=== PATIENT | male | born 1970 | race Caucasian/White ===

== ENCOUNTER 2017-04-29 14:57 | Emergency (ER) | payer BC, OTHER ==
[~2017-04-29 14:57] MED LIST: DEPA500T3 PO; DIVA250ER PO; ESCI20TA PO; GABA600T PO; LEXA20TA PO; NEUR300C PO; SYNT25TA PO; TEMA30CA PO
[2017-04-29 14:59] VITALS: BP 155/96; PULSE 74; RESP 14; TEMP 97.8; O2SAT 95
[2017-04-29] MEDS ORDERED: LEXA10TA PO (16:26)
[2017-04-29] MEDS ORDERED: DEPA500T3 PO (16:26)
[2017-04-29] MEDS ORDERED: DIVA250ER PO (16:26)
--- NOTE | 2017-04-29 16:50 | PD ---
Physical Exam Date Seen by Provider: Apr 29, 2017 Narrative Patient presents for evaluation of possible concussion. He is complaining with dizziness, headache, photophobia. Data Data Last Documented VS Vital Signs Date Time Temp Pulse Resp B/P (MAP) Pulse Ox O2 Delivery O2 Flow Rate FiO2 04/29/17 14:59 97.8 74 14 155/96 (115) 95 MDM Supervised Visit with DAVION: Yes Narrative Course I, Dr. Piedra, have reviewed the advance practice practitioner's documentation and am in agreement, met with the patient face to face, made the diagnosis, and the medical decision making was done by me. *My assessment and Findings: Patient is awake and alert and fully oriented. He is ambulatory to his room. Please see Clif Gee PA-C's note for results of laboratory and radiographic evaluation, ED course, final diagnosis and disposition Myrna Piedra MD Apr 29, 2017 16:50
--- NOTE | 2017-04-29 17:09 | PD ---
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 Patient states that he felt okay at the time, he does have an abrasion to the anterior nose, which appears to be healing well, but he's had increased nausea, headache, photophobia, mild dizziness, and he says his "peripheral vision is fuzzy". Patient has history of concussions in the distant past. Pain is currently about an 8 out of 10 when the lights are on. He denies visual changes or double vision. Patient has not thrown up but does feel nauseous. PFSH Past Medical History Bipolar Disorder: Yes Anxiety: Yes Depression: Yes Diminished Hearing: No Insomnia: Yes Psychiatric: Yes Pneumonia: Yes Past Surgical History Appendectomy: Yes Other Surgery: Yes (BIOPSY RIGHT FOOT) Social History Alcohol Use: Yes (1 drink per day) Tobacco Use: No Substance Use: No Allergies-Medications (Allergen,Severity, Reaction): Coded Allergies: No Known Allergies (Unverified Adverse Reaction, Unknown, 04/29/17) Reported Meds & Prescriptions Reported Meds & Active Scripts Active Zofran (Ondansetron HCl) 4 Mg Tab 4 Mg PO Q6HR PRN Ibuprofen 800 Mg Tab 800 Mg PO Q8H PRN Tramadol (Tramadol HCl) 50 Mg Tab 50 Mg PO Q6H PRN Reported Depakote ER (Divalproex Sodium) 250 Mg Dirk 750 Mg PO HS Depakote ER (Divalproex Sodium) 500 Mg Dirk 500 Mg PO DAILY Lexapro (Escitalopram Oxalate) 10 Mg Tab 10 Mg PO DAILY Physical Exam Narrative GENERAL: Patient appears in mild to moderate distress. Patient has an apparent bug bite/abrasion to the bridge of his nose. SKIN: Warm and dry. Color. Normal turgor HEAD: Patient is tenderness over the nasal bridge without obvious signs of fracture. Normocephalic. She has generalized tenderness with palpation of the scalp without specific bony tenderness. EYES: Pupils equal and round. No scleral icterus. No injection or drainage. Patient has moderate photophobia but no nystagmus. ENT: No nasal bleeding or discharge. Mucous membranes pink and moist. Pharynx is clear. Airway is patent. No dental injury. NECK: Trachea midline. No bony tenderness or step-off. Range of motion is full and nontender. CARDIOVASCULAR: Regular rate and rhythm. RESPIRATORY: No accessory muscle use. Clear to auscultation. Breath sounds equal bilaterally. MUSCULOSKELETAL: Extremities without clubbing, cyanosis, or edema. No obvious deformities. NEUROLOGICAL: Awake and alert. No obvious cranial nerve deficits. Motor grossly within normal limits. Five out of 5 muscle strength in the arms and legs. Normal speech. PSYCHIATRIC: Appropriate mood and affect; insight and judgment normal. Data Data Last Documented VS Vital Signs Date Time Temp Pulse Resp B/P (MAP) Pulse Ox O2 Delivery O2 Flow Rate FiO2 04/29/17 14:59 97.8 74 14 155/96 (115) [address] Brain W/O Iv Contrast(Rout) (04/29/17 17:10) Ondansetron Odt (Zofran Odt) (04/29/17 17:15) Acetamin-Hydrocod 325-5 Mg ([place] 5-325 (04/29/17 17:15) Tetanus/Diphtheria Tox Adult (Tetanus/Di (04/29/17 17:45) Ketorolac Inj (Toradol Inj) (04/29/17 19:00) MDM Medical Decision Making Medical Screen Exam Complete: Yes Emergency Medical Condition: Yes Differential Diagnosis Concussion. Intracranial bleed. Fracture. Narrative Course Patient appears medically stable at time of exam. CT of the head is ordered. Patient is given Lortab 5/325 by mouth as well as Zofran [address] is negative for acute process. Patient given Toradol 60 mg IM. Patient is continued on ibuprofen 800 mg 3 times daily #30. Patient is given Zofran 4 mg one every 6 hours when necessary nausea. Patient is given tramadol 20 mg one every 6 hours when necessary. Patient follow up with symptoms worsen as discussed. Diagnosis Primary Impression: Concussion Qualified Codes: S06.0X9A - Concussion with loss of consciousness of unspecified duration, initial encounter Additional Impressions: Accident at workplace Dog bite Qualified Codes: W54.0XXA - Bitten by dog, initial encounter Referrals: Primary Care Physician Patient Instructions: Concussion (ED), General Instructions Additional Instructions: CT is negative for acute process. Patient given Toradol 60 mg IM. Patient is continued on ibuprofen 800 mg 3 times daily #30. Patient is given Zofran 4 mg one every 6 hours when necessary nausea. Patient is given tramadol 20 mg one every 6 hours when necessary. Patient follow up with symptoms worsen as discussed. Med/Other Pt SpecificInfo: Prescription(s) given Scripts Ondansetron (Zofran) 4 Mg Tab 4 MG PO Q6HR Y for NAUSEA OR VOMITING, #12 TAB 0 Refills Prov: Wayne Huitron MD 04/29/17 Ibuprofen (Ibuprofen) 800 Mg Tab 800 MG PO Q8H Y for Pain/Inflammation, #30 TAB 0 Refills Prov: Wayne Huitron MD 04/29/17 Tramadol (Tramadol) 50 Mg Tab 50 MG PO Q6H Y for PAIN, #20 TAB 0 Refills Prov: Wayne Huitron MD 04/29/17 Disposition: 01 DISCHARGE HOME Condition: Stable Juni Gee Apr 29, 2017 17:09
[2017-04-29] MEDS ORDERED: ONDANSETRON ODT 4 MG TAB PO ONE (17:15)
[2017-04-29] MEDS ORDERED: ACETAMINOPHEN/HYDROcodone 325 MG/5 MG TAB PO ONE (17:15)
[2017-04-29] MEDS ORDERED: TETANUS/DIPHTHERIA TOXOID ADULT 0.5 ML VIAL IM ONE (17:45)
--- NOTE | 2017-04-29 18:19 | RADRPT ---
EXAM DATE/TIME: 04/29/2017 17:52 [facility] COMPARISON: No previous studies available for comparison. INDICATIONS : Patient hit in face with pitbull, complains of headache, nausea. RADIATION DOSE: 56.35 CTDIvol (mGy) MEDICAL HISTORY : None SURGICAL HISTORY : Appendectomy. ENCOUNTER: Initial ACUITY: 3 days PAIN SCALE: 8/10 LOCATION: cranial TECHNIQUE: Multiple contiguous axial images were obtained of the head. Using automated exposure control and adj ustment of the mA and/or kV according to patient size, radiation dose was kept as low as reasonably a chievable to obtain optimal diagnostic quality images. DICOM format image data is available electro nically for review and comparison. FINDINGS: CEREBRUM: The ventricles are normal for age. No evidence of midline shift, mass lesion, hemorrhage or acute in farction. No extra-axial fluid collections are seen. POSTERIOR FOSSA: The cerebellum and brainstem are intact. The 4th ventricle is midline. The cerebellopontine angle i s unremarkable. EXTRACRANIAL: The visualized portion of the orbits is intact. SKULL: The calvaria is intact. No evidence of skull fracture. CONCLUSION: 1. No acute intracranial abnormalities. Alfred Cabrera MD on April 29, 2017 at 18:16 Board Certified Radiologist. This report was verified electronically.
[2017-04-29] MEDS ORDERED: IBUP1TAB7 PO (18:46)
[2017-04-29] MEDS ORDERED: TRAM50TA PO (18:46)
[2017-04-29] MEDS ORDERED: ZOFR4TAB PO (18:46)
[2017-04-29] MEDS ORDERED: KETOROLAC TROMETHAMINE 60 MG/2 ML (IM) VIAL IM ONE (19:00)
[2017-04-29 19:24] VITALS: BP 135/62; PULSE 59; RESP 14; O2SAT 97
== END 2017-04-29 19:46 | disposition home or self-care (01) ==
LOC: NEPD 14:57
DX: S06.0X9A Concussion with loss of consciousness of unspecified duration, initial encounter (principal); F31.9 Bipolar disorder, unspecified; F41.9 Anxiety disorder, unspecified; W54.0XXA Bitten by dog, initial encounter; Y99.0 Civilian activity done for income or pay; Z79.899 Other long term (current) drug therapy
CPT/HCPCS: 70450; 90471; 90714; 96372; 99284; J1885

== ENCOUNTER 2017-05-08 10:45 | Emergency (ER) | payer OTHER ==
[~2017-05-08] VITALS: Ht 185.4 cm; Wt 118.2 kg
[~2017-05-08 10:45] MED LIST changes: -ESCI20TA PO; -GABA600T PO; +IBUP1TAB7 PO; +LEXA10TA PO; -LEXA20TA PO; -NEUR300C PO; -SYNT25TA PO; -TEMA30CA PO; +TRAM50TA PO; +ZOFR4TAB PO
[2017-05-08 10:46] VITALS: BP 159/104; PULSE 71; RESP 16; TEMP 98.4; O2SAT 99
[2017-05-08] MEDS ORDERED: DICL1CAP4 PO (12:00)
[2017-05-08] MEDS ORDERED: SODIUM CHLOR 0.9% 1000 ML INJ 1,000 ML IV ONE (12:43)
[2017-05-08] MEDS ORDERED: SODIUM CHLORIDE 0.9% FLUSH 10 ML FLUSH IVF PRN (12:45)
[2017-05-08] MEDS ORDERED: KETOROLAC TROMETHAMINE 30 MG/ML (IVP) VIAL IVP ONE (12:45)
[2017-05-08] MEDS ORDERED: PROCHLORPERAZINE INJ 10 MG/2 ML VIAL IVP ONE (12:45)
[2017-05-08] MEDS ORDERED: diphenhydrAMINE HCL 50 MG/ML VIAL IVP ONE (12:45)
--- NOTE | 2017-05-08 12:50 | PD ---
HPI Chief Complaint: Medical Clearance Time Seen by Provider: 12:24 Travel History International Travel<30 days: No Contact w/Intl Traveler<30days: No Traveled to known affect area: No History of Present Illness HPI 46-year-old male presents to the emergency department requesting pain medications secondary to being bit by a pitbull in the nose one and a half weeks ago and continued headache, dizziness, neck pain, photophobia, fatigue. He was seen here on April [address] of his head was unremarkable and was diagnosed with concussion. He has had continued, but not worsening of symptoms. Denies fever, vomiting. Neck pain is left lateral and reports it as a stiffness. Denies chest pain, shortness of breath. Has been taking tramadol , ibuprofen, diclofenac for symptom management without relief. Aggravated by light and movement. No known relieving factors. Rates pain 7/10 and describes as throbbing. No known allergies. No primary care provider. Denies significant past medical history. Takes Depakote and Lexapro for bipolar disorder. Has no other medical complaints. No other modifying factors or associated signs and symptoms. PFSH Past Medical History Bipolar Disorder: Yes Anxiety: Yes Depression: Yes Diminished Hearing: No Insomnia: Yes Psychiatric: Yes Pneumonia: Yes Past Surgical History Appendectomy: Yes Other Surgery: Yes (BIOPSY RIGHT FOOT) Social History Alcohol Use: Yes (1 drink per day) Tobacco Use: No Substance Use: No Allergies-Medications (Allergen,Severity, Reaction): Coded Allergies: No Known Allergies (Unverified Adverse Reaction, Unknown, 04/29/17) Reported Meds & Prescriptions Reported Meds & Active Scripts Active Zofran (Ondansetron HCl) 4 Mg Tab 4 Mg PO Q6HR PRN Ibuprofen 800 Mg Tab 800 Mg PO Q8H PRN Tramadol (Tramadol HCl) 50 Mg Tab 50 Mg PO Q6H PRN Reported Zorvolex (Diclofenac) 35 Mg Cap 75 Mg PO BID Depakote ER (Divalproex Sodium) 250 Mg Dirk 750 Mg PO HS Depakote ER (Divalproex Sodium) 500 Mg Dirk 500 Mg PO DAILY Lexapro (Escitalopram Oxalate) 10 Mg Tab 10 Mg PO DAILY Review of Systems Except as stated in HPI: all other systems reviewed are Neg Physical Exam Narrative GENERAL: Well-nourished, well-developed male patient, in no acute distress SKIN: Warm and dry. HEAD: Atraumatic. Normocephalic. No facial droop noted. Nose to finger test normal. EYES: Pupils equal and round at 3 mm with brisk reaction. No scleral icterus. No injection or drainage. PERRLA. EOMI. ENT: Mucosa pink and moist. Airway patent. NECK: Trachea midline. No lymphadenopathy. CARDIOVASCULAR: Regular rate and rhythm. No murmur appreciated. RESPIRATORY: No accessory muscle use. Clear to auscultation. Breath sounds equal bilaterally. GASTROINTESTINAL: Abdomen soft, non-tender, nondistended. Hepatic and splenic margins not palpable. Bowel sounds are active 4 quadrants. MUSCULOSKELETAL: No obvious deformities. No clubbing. No cyanosis. No edema. NEUROLOGICAL: Awake and alert. Oriented 4. No obvious cranial nerve deficits. Motor grossly within normal limits. Normal speech. No ataxia. No mid -line drift. No upper or lower extremity drift. Sensory intact and equal bilaterally. Moves all extremities. 5/5 strength to all extremities. PSYCHIATRIC: Appropriate mood and affect; insight and judgment normal. Data Data Last Documented VS Vital Signs Date Time Temp Pulse Resp B/P (MAP) Pulse Ox O2 Delivery O2 Flow Rate FiO2 05/08/17 10:46 98.4 71 16 159/104 (122) 99 Room Air Orders Orders Complete Blood Count With Diff (05/08/17 12:43) Basic Metabolic Panel (Bmp) (05/08/17 12:43) Iv Access Insert/Monitor (05/08/17 12:43) Sodium Chloride 0.9% Flush (Ns Flush) (05/08/17 12:45) Ketorolac Inj (Toradol Inj) (05/08/17 12:45) Prochlorperazine Inj (Compazine Inj) (05/08/17 12:45) Diphenhydramine Inj (Benadryl Inj) (05/08/17 12:45) Sodium Chlor 0.9% 1000 Ml Inj (Ns 1000 M (05/08/17 12:43) Labs Laboratory Tests Test 05/08/17 12:50 White Blood Count 7.5 TH/MM3 Red Blood Count 5.28 MIL/MM3 Hemoglobin 16.4 GM/DL Hematocrit 46.6 % Mean Corpuscular Volume 88.2 FL Mean Corpuscular Hemoglobin 31.0 PG Mean Corpuscular Hemoglobin Concent 35.1 % Red Cell Distribution Width 13.0 % Platelet Count 223 TH/MM3 Mean Platelet Volume 7.6 FL Neutrophils (%) (Auto) 50.1 % Lymphocytes (%) (Auto) 37.3 % Monocytes (%) (Auto) 7.5 % Eosinophils (%) (Auto) 4.1 % Basophils (%) (Auto) 1.0 % Neutrophils # (Auto) 3.8 TH/MM3 Lymphocytes # (Auto) 2.8 TH/MM3 Monocytes # (Auto) 0.6 TH/MM3 Eosinophils # (Auto) 0.3 TH/MM3 Basophils # (Auto) 0.1 TH/MM3 CBC Comment DIFF FINAL Differential Comment Blood Urea Nitrogen 18 MG/DL Creatinine 1.07 MG/DL Random Glucose 81 MG/DL Calcium Level 9.5 MG/DL Sodium Level 137 MEQ/L Potassium Level 4.8 MEQ/L Chloride Level 102 MEQ/L Carbon Dioxide Level 29.8 MEQ/L Anion Gap 5 MEQ/L Estimat Glomerular Filtration Rate 75 ML/MIN MDM Medical Decision Making Medical Screen Exam Complete: Yes Emergency Medical Condition: Yes Medical Record Reviewed: Yes Differential Diagnosis Pain management, concussion, medical clearance Narrative Course 46-year-old male with continued headache after being bit by a pit bull in the nose a week and a half ago. He is here requesting pain medications because his current medications are not alleviating his headache/pain. Denies fever, vomiting. Neuro exam is unremarkable. Patient had CT of the head on April which was unremarkable. IV site, Compazine, Benadryl, Toradol, normal saline bolus ordered. 1415: On reexamination patient is lying comfortably in a dark room. Rates headache 2/10. Reports improvement in symptoms. Zofran and ibuprofen prescribed for home. Instructed patient to follow-up with neurologist. Instructed patient to follow up with primary care provider. Patient verbalizes understanding and agreement with treatment plan. Patient is medically cleared and stable for discharge. Discussed reasons to return to the emergency department. Patient agrees with treatment plan. The patients vital signs are stable and the patient is stable for outpatient follow-up and treatment. Patient discharged home, stable and in no acute distress. Diagnosis Primary Impression: Headache Qualified Codes: R51 - Headache Additional Impression: Concussion Qualified Codes: S06.0X0D - Concussion without loss of consciousness, subsequent encounter Referrals: Neurologist Primary Care Physician Patient Instructions: Acute Headache (ED), Concussion (ED), General Instructions Additional Instructions: Ibuprofen or Tylenol as directed and as needed to reduce headache Get plenty of rest: do not over sleep rest and relax in a dark, quiet room as needed Place an ice pack on the back of her neck to reduce head pain as needed Keep a headache diary of what triggers her headaches and what treatment is most effective Avoid identifiable triggers Avoid smoking, alcohol and caffeine consumption Reduce stress Follow-up with primary care provider within 1-2 days Follow-up with neurology Return immediately to the emergency department with worsening symptoms Scripts Ondansetron Odt (Zofran Odt) 4 Mg Tab 4 MG SL Q8HR Y for Nausea/Vomiting, #6 TAB 0 Refills Prov: Emili Suarez 05/08/17 Ibuprofen (Ibuprofen) 800 Mg Tab 800 MG PO Q6HR Y for PAIN, #40 TAB 0 Refills Prov: Emili Suarez 05/08/17 Disposition: 01 DISCHARGE HOME Condition: Stable Emili Suarez May 08, 2017 12:50
[2017-05-08 12:59] LABS: AUTOMATED NEUTROPHIL # 3.8 TH/MM3 (1.8-7.7); BASOPHIL # 0.1 TH/MM3 (0-0.2); EOSINOPHIL # 0.3 TH/MM3 (0-0.4); EOSINOPHIL % 4.1 % (0.0-4.0); HEMATOCRIT 46.6 % (39.0-51.0); HEMOGLOBIN 16.4 GM/DL (13.0-17.0); LYMPH % 37.3 % (9.0-44.0); LYMPHOCYTE # 2.8 TH/MM3 (1.0-4.8); MEAN CELL VOLUME 88.2 FL (80.0-100.0); MEAN CORPUSCULAR HGB CONC 35.1 % (32.0-36.0); MEAN PLATELET VOLUME 7.6 FL (7.0-11.0); MONO % 7.5 % (0.0-8.0); MONOCYTE # 0.6 TH/MM3 (0-0.9); NEUT % 50.1 % (16.0-70.0); PLATELET COUNT 223 TH/MM3 (150-450); RED BLOOD COUNT 5.28 MIL/MM3 (4.50-5.90); WHITE BLOOD COUNT 7.5 TH/MM3 (4.0-11.0)
[2017-05-08 13:23] LABS: BICARBONATE 29.8 MEQ/L (21.0-32.0); CALCIUM 9.5 MG/DL (8.5-10.1); CREATININE 1.07 MG/DL (0.60-1.30)
[2017-05-08] MEDS ORDERED: IBUP1TAB7 PO (14:23)
[2017-05-08] MEDS ORDERED: ZOFR4TAB3 SL (14:23)
== END 2017-05-08 14:45 | disposition home or self-care (01) ==
LOC: NEPD 10:45
DX: R51 Headache (principal); S06.0X0D Concussion without loss of consciousness, subsequent encounter; M54.2 Cervicalgia; F31.9 Bipolar disorder, unspecified; W54.0XXD Bitten by dog, subsequent encounter
CPT/HCPCS: 80048; 85025; 96361; 96374; 96375; 99284; J0780; J1200; J1885; J7030

== ENCOUNTER 2017-07-23 17:55 | Emergency (ER) | payer OTHER ==
[~2017-07-23] VITALS: Ht 185.4 cm; Wt 112.7 kg
[~2017-07-23 17:55] MED LIST changes: +DICL1CAP4 PO; +ZOFR4TAB3 SL
[2017-07-23 18:14] VITALS: BP 148/94; PULSE 67; RESP 18; TEMP 98; O2SAT 99
[2017-07-23] MEDS ORDERED: CARI1CAP2 PO (18:28)
--- NOTE | 2017-07-23 20:40 | PD ---
HPI Chief Complaint: Psychiatric Symptoms Time Seen by Provider: 19:09 Travel History International Travel<30 days: No Contact w/Intl Traveler<30days: No Traveled to known affect area: No History of Present Illness HPI 46-year-old white male presents emergency department on a voluntary basis for psychological evaluation. Patient has history of bipolar disorder. He was at his nurse practitioner's office today for a follow-up. He has just had a medication change in the last 30 days. He was taken off his Depakote and started on a new medication for his bipolar. He does not feel that it has been working for him. He still having intrusive thoughts and suicidal ideation. He has no current plan. He denies any other medical complaints. He has been eating and drinking. He has had no homicidal ideation. Patient denies drugs or tobacco. He does drink on occasion. PFSH Past Medical History Bipolar Disorder: Yes Anxiety: Yes Depression: Yes Diminished Hearing: No Insomnia: Yes Psychiatric: Yes Pneumonia: Yes Tetanus Vaccination: < 5 Years Past Surgical History Appendectomy: Yes Other Surgery: Yes (Lumbar discectomy) Social History Alcohol Use: Yes (1 drink per day) Tobacco Use: No Substance Use: No Allergies-Medications (Allergen,Severity, Reaction): Coded Allergies: No Known Allergies (Unverified Adverse Reaction, Unknown, 04/29/17) Reported Meds & Prescriptions Reported Meds & Active Scripts Active Reported Vraylar (Cariprazine) 3 Mg Cap 3 Mg PO DAILY Depakote ER (Divalproex Sodium) 500 Mg Dirk 500 Mg PO DAILY Review of Systems General / Constitutional: No: Fever Eyes: No: Visual changes HENT: No: Headaches Cardiovascular: No: Chest Pain or Discomfort Respiratory: No: Shortness of Breath Gastrointestinal: No: Abdominal Pain Genitourinary: No: Dysuria Musculoskeletal: No: Pain Skin: No Rash Neurologic: No: Weakness Psychiatric: Positive: Depression, Suicidal Ideations, No: Anxiety, Disorder of Thought, Mood Disorder, Substance Abuse, Homicidal Ideation Endocrine: No: Polydipsia Hematologic/Lymphatic: No: Easy Bruising Physical Exam Narrative GENERAL: Well-nourished, well-developed patient. SKIN: Warm and dry. HEAD: Normocephalic and atraumatic. EYES: No scleral icterus. No injection or drainage. ENT: No nasal drainage noted. Mucous membranes pink. Airway patent. NECK: Supple, trachea midline. Moves head freely without obvious discomfort. CARDIOVASCULAR: Regular rate and rhythm without murmurs, gallops, or rubs. RESPIRATORY: Breath sounds equal bilaterally. No accessory muscle use. GASTROINTESTINAL: Abdomen soft, non-tender, nondistended. EXTREMITIES: No cyanosis or edema. BACK: Nontender without obvious deformity. No CVA tenderness. NEURO: Patient is alert and oriented. no sensorimotor deficits. Nonfocal. Normal speech. PSYCH: No delusions. No auditory or visual hallucinations. Data Data Last Documented VS Vital Signs Date Time Temp Pulse Resp B/P (MAP) Pulse Ox O2 Delivery O2 Flow Rate FiO2 07/23/17 18:14 98.0 67 18 148/94 (112) 99 Orders Orders Complete Blood Count With Diff (07/23/17 18:15) Comprehensive Metabolic Panel (07/23/17 18:15) Thyroid Stimulating Hormone (07/23/17 18:15) Psych Screen (07/23/17 18:15) Drug Screen, Random Urine (07/23/17 18:15) Alcohol (Ethanol) (07/23/17 18:15) Salicylates (Aspirin) (07/23/17 18:15) Tylenol (Acetaminophen) (07/23/17 18:15) Diet Regular Basic (07/23/17 Dinner) Labs Laboratory Tests Test 07/23/17 18:16 Urine Opiates Screen NEG Urine Barbiturates Screen NEG Urine Amphetamines Screen NEG Urine Benzodiazepines Screen NEG Urine Cocaine Screen NEG Urine Cannabinoids Screen NEG MDM Medical Decision Making Medical Screen Exam Complete: Yes Emergency Medical Condition: Yes Medical Record Reviewed: Yes Differential Diagnosis MDM: High Differential diagnoses: Schizophrenia, schizoaffective disorder, bipolar, anxiety, depression, adjustment reaction, mood disorder NOS, ODD, depressive disorder NOS, malingering. Narrative Course Mental health screening discussed with the patient. Psychiatric screen ordered. The patient's been medically cleared. Condition: Stable Alfred Soriano Jul 23, 2017 20:40
[2017-07-23 22:32] LABS: BASOPHIL # 0.1 TH/MM3 (0-0.2); BASOPHIL % 0.9 % (0.0-2.0); EOSINOPHIL # 0.3 TH/MM3 (0-0.4); EOSINOPHIL % 3.5 % (0.0-4.0); HEMATOCRIT 43.7 % (39.0-51.0); LYMPH % 46.9 % (9.0-44.0); LYMPHOCYTE # 3.7 TH/MM3 (1.0-4.8); MEAN CELL VOLUME 86.7 FL (80.0-100.0); MEAN CORPUSCULAR HEMOGLOBIN 29.7 PG (27.0-34.0); MEAN CORPUSCULAR HGB CONC 34.3 % (32.0-36.0); MEAN PLATELET VOLUME 7.7 FL (7.0-11.0); MONO % 10.4 % (0.0-8.0); MONOCYTE # 0.8 TH/MM3 (0-0.9); NEUT % 38.3 % (16.0-70.0); PLATELET COUNT 217 TH/MM3 (150-450); RED BLOOD COUNT 5.04 MIL/MM3 (4.50-5.90); RED CELL DISTRIBUTION WIDTH 12.9 % (11.6-17.2); WHITE BLOOD COUNT 7.9 TH/MM3 (4.0-11.0)
[2017-07-23 22:49] LABS: ALBUMIN 3.7 GM/DL (3.4-5.0); ALT (GPT) 27 U/L (12-78); AST (GOT) 23 U/L (15-37); BICARBONATE 29.6 MEQ/L (21.0-32.0); BLOOD UREA NITROGEN 19 MG/DL (7-18); CALCIUM 8.6 MG/DL (8.5-10.1); CHLORIDE 105 MEQ/L (98-107); CREATININE 1.07 MG/DL (0.60-1.30); GLOMERULAR FILTRATION RATE 75 ML/MIN (>89); GLUCOSE,RANDOM 82 MG/DL (74-106); SODIUM (NA) 142 MEQ/L (136-145)
[2017-07-23 22:59] LABS: ALKALINE PHOSPHATASE 48 U/L (45-117); TOTAL BILIRUBIN ADULT 0.4 MG/DL (0.2-1.0); TOTAL PROTEIN 7.2 GM/DL (6.4-8.2)
[2017-07-23 23:02] LABS: ACETAMINOPHEN LESS THAN 2.0 MCG/ML (10.0-30.0)
[2017-07-24 01:36] VITALS: BP 128/76; PULSE 60; RESP 18; O2SAT 100
[2017-07-24 05:09] VITALS: BP 136/89; PULSE 74; RESP 14; TEMP 98; O2SAT 98
[2017-07-24 11:07] VITALS: BP 157/75; PULSE 83; RESP 16; TEMP 98.1; O2SAT 99
[2017-07-24] MEDS ORDERED: DEPA500T3 PO (12:44)
--- NOTE | 2017-07-24 12:44 | PD ---
Physical Exam Time Seen by Provider: 12:42 Narrative BRADEN Self has evaluated the patient and cleared the patient for discharge. The is coming to pick the patient up. She has spoken with the patient's psychiatrist and his Depakote will be increased. The patient will be provided prescriptions for home. Data Data Last Documented VS Vital Signs Date Time Temp Pulse Resp B/P (MAP) Pulse Ox O2 Delivery O2 Flow Rate FiO2 07/24/17 11:07 98.1 83 16 157/75 (102) 99 Room Air Orders Orders Complete Blood Count With Diff (07/23/17 18:15) Comprehensive Metabolic Panel (07/23/17 18:15) Thyroid Stimulating Hormone (07/23/17 18:15) Psych Screen (07/23/17 18:15) Drug Screen, Random Urine (07/23/17 18:15) Alcohol (Ethanol) (07/23/17 18:15) Salicylates (Aspirin) (07/23/17 18:15) Tylenol (Acetaminophen) (07/23/17 18:15) Diet Regular Basic (07/23/17 Dinner) Valproic Acid (Depakene) (07/23/17 22:14) Diet Regular Basic (07/24/17 Breakfast) Diet Regular Basic (07/24/17 Lunch) Labs Laboratory Tests Test 07/23/17 18:16 07/23/17 22:14 Urine Opiates Screen NEG Urine Barbiturates Screen NEG Urine Amphetamines Screen NEG Urine Benzodiazepines Screen NEG Urine Cocaine Screen NEG Urine Cannabinoids Screen NEG White Blood Count 7.9 TH/MM3 Red Blood Count 5.04 MIL/MM3 Hemoglobin 15.0 GM/DL Hematocrit 43.7 % Mean Corpuscular Volume 86.7 FL Mean Corpuscular Hemoglobin 29.7 PG Mean Corpuscular Hemoglobin Concent 34.3 % Red Cell Distribution Width 12.9 % Platelet Count 217 TH/MM3 Mean Platelet Volume 7.7 FL Neutrophils (%) (Auto) 38.3 % Lymphocytes (%) (Auto) 46.9 % Monocytes (%) (Auto) 10.4 % Eosinophils (%) (Auto) 3.5 % Basophils (%) (Auto) 0.9 % Neutrophils # (Auto) 3.0 TH/MM3 Lymphocytes # (Auto) 3.7 TH/MM3 Monocytes # (Auto) 0.8 TH/MM3 Eosinophils # (Auto) 0.3 TH/MM3 Basophils # (Auto) 0.1 TH/MM3 CBC Comment DIFF FINAL Differential Comment Blood Urea Nitrogen 19 MG/DL Creatinine 1.07 MG/DL Random Glucose 82 MG/DL Total Protein 7.2 GM/DL Albumin 3.7 GM/DL Calcium Level 8.6 MG/DL Alkaline Phosphatase 48 U/L Aspartate Amino Transf (AST/SGOT) 23 U/L Alanine Aminotransferase (ALT/SGPT) 27 U/L Total Bilirubin 0.4 MG/DL Sodium Level 142 MEQ/L Potassium Level 4.2 MEQ/L Chloride Level 105 MEQ/L Carbon Dioxide Level 29.6 MEQ/L Anion Gap 7 MEQ/L Estimat Glomerular Filtration Rate 75 ML/MIN Thyroid Stimulating Hormone 3rd Gen 3.940 uIU/ML Salicylates Level LESS THAN 1.7 MG/DL Acetaminophen Level LESS THAN 2.0 MCG/ML Valproic Acid (Depakene) Level 22 MCG/ML Ethyl Alcohol Level LESS THAN 3 MG/DL MDM Supervised Visit with DAVION: No Narrative Course BRADEN Self has evaluated the patient and cleared the patient for discharge. The is coming to pick the patient up. She has spoken with the patient's psychiatrist and his Depakote will be increased. The patient will be provided prescriptions for home. Patient contracts safety. Denies suicidal or homicidal ideations. Patient will be provided community resource packet to / MICHELLE for follow-up. Has friends and family for support. Patient was medically cleared by alternate provider prior to psych screening. Patient has been evaluated by psychiatry and and is now cleared for discharge. Diagnosis Primary Impression: Bipolar 1 disorder, depressed Referrals: [facility] (Out patient) [facility] Primary Care Physician Psychiatrist [facility] Patient Instructions: Bipolar Disorder (ED), Depression (ED), General Instructions Additional Instruction: Contract safety to your self and others Follow-up with psychiatry Follow-up with primary care provider Follow-up with Lyle Hogue Return to the emergency department immediately with worsening of symptoms Med/Other Pt SpecificInfo: Prescription(s) given Disposition: 01 DISCHARGE HOME Condition: Stable Emili Suarez Jul 24, 2017 12:44
--- NOTE | 2017-07-24 12:57 | PD ---
History of Present Illness Chief Complaint: Psychiatric Symptoms Time Seen by Provider: 12:25 Travel History International Travel<30 Days: No Contact w/Intl Traveler<30days: No Known affected area: No Legal Status Legal Status: Voluntary History of Present Illness: 46-year-old , male who presents voluntarily to this facility for self-reported depression and "dark thoughts". This patient is known to this facility however, he has not been seen for over a year. In 2016 he was seen here after a suicide attempt by carbon monoxide poisoning. Patient has established psychiatric outpatient with [facility] BRADEN Lauren. Reviewed electronic medical record and discussed case with staff. Reviewed labs VPA level is subtherapeutic at 22. Staff reports that patient has had no behavioral issues throughout his stay. Patient was evaluated in his room in J pod. He is awake, alert, and oriented 4. His speech is clear, logical, and organized. He denies suicidal ideation, homicidal ideation, auditory or visual hallucinations. I can elicit no delusional material. There is no indication of internal stimulation. His mood is good his affect is euthymic. He reports intermittent feelings recently of despair, and states "sometimes I just feel I be better off ". He denies having had a plan. However, he states that today he feels much better. Per patient, he was started on a very large month ago and his provider began dropping his Depakote dose. He has gone from approximately 1250 mg to 500 mg of Depakote per day. He reports that when he was at 750 mg of Depakote with a very large he "felt great". Discussed case with BRADEN Lauren who treats him outpatient. We are in agreement to increase his Depakote to 750 mg. He will follow up with her outpatient in 2 weeks and have his levels rechecked. Additionally, I spoke with his , Sarai, with his permission. She too agrees with this course of action. Advised patient and his that should his condition worsen he should be returned immediately to the ED for further evaluation and treatment. PFSH Past Medical History Bipolar Disorder: Yes Anxiety: Yes Depression: Yes Diminished Hearing: No Insomnia: Yes Psychiatric: Yes Pneumonia: Yes Tetanus Vaccination: < 5 Years Past Surgical History Appendectomy: Yes Other Surgery: Yes (Lumbar discectomy) Psychiatric History Psychiatric History Diagnoses of bipolar disorder and has had 2 previous suicide attempts. Has been treated inpatient at this facility. Last visit was in 2015. Hx Psychiatric Treatment: Hx of bipolar d/o since 2006. [facility] admission 12/29-01/06/2016 for bipolar d/o. Hx of 2 previous sucide attempts in 1994 and 1995 History of Inpatient Treatment: Yes Social History Patient lives with his and one stepson. He does not smoke tobacco, states that he has drastically cut down on drinking, and denies illicit drug use. 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 Hx Alcohol Use: Yes (1 drink per day) Hx Tobacco Use: No Hx Substance Use: No Hx of Substance Use Treatment: No Family Psychiatric History Patient reports familial history of depression. Denies any suicide attempts by family members. Allergies-Medications (Allergen,Severity, Reaction): Coded Allergies: No Known Allergies (Unverified Adverse Reaction, Unknown, 04/29/17) Reported Meds & Prescriptions Reported Meds & Active Scripts Active Reported Vraylar (Cariprazine) 3 Mg Cap 3 Mg PO DAILY Depakote ER (Divalproex Sodium) 500 Mg Dirk 500 Mg PO DAILY Mental Status Examination Appearance: Appropriate Consciousness: Alert Orientation: x4 Motor Activity: Normal gait Speech: Unremarkable Language: Adequate Fund of Knowledge: Adequate Attention and Concentration: Adequate Memory: Unremarkable Mood: Appropriate Affect: Appropriate Thought Process & Associations: Intact Thought Content: Appropriate Hallucination Type: None Delusion Type: None Suicidal Ideation: No Suicidal Plan: No Suicidal Intention: No Homicidal Ideation: No Homicidal Plan: No Homicidal Intention: No Insight: Adequate Judgment: Impulsive MDM Medical Decision Making Medical Record Reviewed: Yes Assessment/Plan 46-year-old , male who presented voluntarily for depression and "dark thoughts". This morning patient states that he feels better. He does admit to intermittent thoughts that, "the world would be a better place without me, I be better off ". Recently, his outpatient provider has been titrating his medications. Lab work shows that his VPA is subtherapeutic at 22. Patient speech is clear, logical, and organized. His mood is good his affect is euthymic. He denies having a plan to harm himself and in fact denies wanting to harm himself today. He denies homicidal ideation and AVH. I can elicit no delusional material. Patient expresses a desire to be discharged home with a change in his Depakote dosage. I discussed this with his outpatient psychiatric provider as well as his were both in agreement with this plan. Patient and have been advised to return him to the emergency department if his condition worsens. He will be discharged with prescription for 750 mg of Depakote once daily and will follow up with his [employer]LECT[employer]EL[employer] in 2 weeks. Orders Orders Complete Blood Count With Diff (07/23/17 18:15) Comprehensive Metabolic Panel (07/23/17 18:15) Thyroid Stimulating Hormone (07/23/17 18:15) Psych Screen (07/23/17 18:15) Drug Screen, Random Urine (07/23/17 18:15) Alcohol (Ethanol) (07/23/17 18:15) Salicylates (Aspirin) (07/23/17 18:15) Tylenol (Acetaminophen) (07/23/17 18:15) Diet Regular Basic (07/23/17 Dinner) Valproic Acid (Depakene) (07/23/17 22:14) Diet Regular Basic (07/24/17 Breakfast) Diet Regular Basic (07/24/17 Lunch) Results Vital Signs Date Time Temp Pulse Resp B/P (MAP) Pulse Ox O2 Delivery O2 Flow Rate FiO2 07/24/17 11:07 98.1 83 16 157/75 (102) 99 Room Air 07/24/17 05:09 98.0 74 14 136/89 (105) 98 Room Air 07/24/17 01:36 60 18 128/76 (93) 100 Room Air 07/23/17 18:14 98.0 67 18 148/94 (112) 99 Laboratory Tests Test 07/23/17 18:16 07/23/17 22:14 Urine Opiates Screen NEG Urine Barbiturates Screen NEG Urine Amphetamines Screen NEG Urine Benzodiazepines Screen NEG Urine Cocaine Screen NEG Urine Cannabinoids Screen NEG White Blood Count 7.9 Red Blood Count 5.04 Hemoglobin 15.0 Hematocrit 43.7 Mean Corpuscular Volume 86.7 Mean Corpuscular Hemoglobin 29.7 Mean Corpuscular Hemoglobin Concent 34.3 Red Cell Distribution Width 12.9 Platelet Count 217 Mean Platelet Volume 7.7 Neutrophils (%) (Auto) 38.3 Lymphocytes (%) (Auto) 46.9 Monocytes (%) (Auto) 10.4 Eosinophils (%) (Auto) 3.5 Basophils (%) (Auto) 0.9 Neutrophils # (Auto) 3.0 Lymphocytes # (Auto) 3.7 Monocytes # (Auto) 0.8 Eosinophils # (Auto) 0.3 Basophils # (Auto) 0.1 CBC Comment DIFF FINAL Differential Comment Blood Urea Nitrogen 19 Creatinine 1.07 Random Glucose 82 Total Protein 7.2 Albumin 3.7 Calcium Level 8.6 Alkaline Phosphatase 48 Aspartate Amino Transf (AST/SGOT) 23 Alanine Aminotransferase (ALT/SGPT) 27 Total Bilirubin 0.4 Sodium Level 142 Potassium Level 4.2 Chloride Level 105 Carbon Dioxide Level 29.6 Anion Gap 7 Estimat Glomerular Filtration Rate 75 Thyroid Stimulating Hormone 3rd Gen 3.940 Salicylates Level LESS THAN 1.7 Acetaminophen Level LESS THAN 2.0 Valproic Acid (Depakene) Level 22 Ethyl Alcohol Level LESS THAN 3 Diagnosis Primary Impression: Bipolar 1 disorder, depressed Psychiatrically Cleared: Yes Med/ Other Pt Specific Info: Prescription(s) given, Existing Med Changed Prescriptions Divalproex ER (Depakote ER) 500 Mg Dirk 750 MG PO DAILY for Control Seizures for 30 Days, #45 TAB 0 Refills Prov: Flor Blackwell 07/24/17 Disposition: 01 DISCHARGE HOME Condition: Stable Flor Blackwell Jul 24, 2017 12:57
[2017-07-24] MEDS ORDERED: DIVALPROEX SODIUM E.R. 250 MG TAB PO ONE (13:00)
== END 2017-07-24 13:27 | disposition home or self-care (01) ==
LOC: NEPJ 17:55
DX: F31.9 Bipolar disorder, unspecified (principal); Z79.899 Other long term (current) drug therapy
CPT/HCPCS: 80053; 80164; 80307; 84443; 85025; 99283

== ENCOUNTER 2017-08-20 13:47 | Inpatient (IN) | payer OTHER ==
[~2017-08-20] VITALS: Ht 185.4 cm; Wt 110.6 kg
[~2017-08-20 13:47] MED LIST changes: +CARI1CAP2 PO; -DICL1CAP4 PO; -DIVA250ER PO; +DIVALPROEX SODIUM E.R. 250 MG TAB PO SCH; -IBUP1TAB7 PO; -LEXA10TA PO; -TRAM50TA PO; -ZOFR4TAB PO; -ZOFR4TAB3 SL
[2017-08-20 13:51] VITALS: BP 158/87; PULSE 94; RESP 19; TEMP 98.4; O2SAT 97
[2017-08-20 14:21] LABS: AUTOMATED NEUTROPHIL # 4.7 TH/MM3 (1.8-7.7); BASOPHIL # 0.1 TH/MM3 (0-0.2); EOSINOPHIL # 0.1 TH/MM3 (0-0.4); EOSINOPHIL % 1.2 % (0.0-4.0); HEMATOCRIT 45.4 % (39.0-51.0); HEMOGLOBIN 15.6 GM/DL (13.0-17.0); LYMPH % 33.8 % (9.0-44.0); LYMPHOCYTE # 2.8 TH/MM3 (1.0-4.8); MEAN CELL VOLUME 85.5 FL (80.0-100.0); MEAN CORPUSCULAR HEMOGLOBIN 29.4 PG (27.0-34.0); MEAN CORPUSCULAR HGB CONC 34.4 % (32.0-36.0); MEAN PLATELET VOLUME 8.3 FL (7.0-11.0); MONO % 7.7 % (0.0-8.0); MONOCYTE # 0.6 TH/MM3 (0-0.9); NEUT % 56.3 % (16.0-70.0); PLATELET COUNT 223 TH/MM3 (150-450); RED BLOOD COUNT 5.32 MIL/MM3 (4.50-5.90); RED CELL DISTRIBUTION WIDTH 13.1 % (11.6-17.2); WHITE BLOOD COUNT 8.3 TH/MM3 (4.0-11.0)
[2017-08-20 14:35] LABS: BACTERIA, URINE RARE /hpf; BILIRUBIN, URINE NEG (NEG); BLOOD, URINE NEG (NEG); GLUCOSE,URINE NEG (NEG); KETONE, URINE NEG (NEG); MUCUS URINE FEW /lpf (OCC); NITRITE,URINE NEG (NEG); SQUAMOUS EPITHELIAL CELL URINE 1 /hpf (0-5); URINE COLOR YELLOW (YELLW/STRAW); URINE LEUKOCYTE ESTERASE NEG (NEG)
[2017-08-20 14:40] LABS: AST (GOT) 19 U/L (15-37); BLOOD UREA NITROGEN 21 MG/DL (7-18); CALCIUM 9.5 MG/DL (8.5-10.1); CHLORIDE 107 MEQ/L (98-107); CREATININE 1.13 MG/DL (0.60-1.30); GLOMERULAR FILTRATION RATE 70 ML/MIN (>89); GLUCOSE,RANDOM 92 MG/DL (74-106); SODIUM (NA) 142 MEQ/L (136-145)
[2017-08-20 14:41] VITALS: BP 133/85; PULSE 80; RESP 16; O2SAT 97
[2017-08-20 14:41] LABS: ALT (GPT) 27 U/L (12-78)
[2017-08-20 14:43] LABS: ALKALINE PHOSPHATASE 53 U/L (45-117); TOTAL BILIRUBIN ADULT 0.3 MG/DL (0.2-1.0); TOTAL PROTEIN 7.5 GM/DL (6.4-8.2)
--- NOTE | 2017-08-20 15:25 | PD ---
HPI Chief Complaint: Suicide Ideation/Attempt Time Seen by Provider: 14:42 Travel History International Travel<30 days: No Contact w/Intl Traveler<30days: No Traveled to known affect area: No History of Present Illness HPI 46-year-old male presents voluntarily for psychological evaluation after trying to commit suicide about an hour ago by breathing and gas fumes from a gas powered blower that he placed in the front seat of his truck. He said the blower ran for about 10 minutes when he thought about his and "snapped out of it" and stopped himself from going forward. He has history of chronic depression and bipolar disorder and several suicidal attempts over the past few years. His last attempt was in February 2016 with a similar event and his found him after losing consciousness. Reports that the thought of suicide at this time scares him. He denies homicidal ideations. Denies illicit drug use. Reports occasional alcohol use. Denies tobacco use. Denies auditory or visual hallucinations. His current attempt was not aggravated by any certain reason. He says this is a "ongoing grimes." No known relieving factors. Symptoms are severe in severity. He was recently changed from Lexapro to Vraylar approximately 2 months ago. He also takes Depakote. He sees Xin Swift, psychiatrist, and his has called her and she wants to see him next week. Otherwise he had an appointment in October. He has no primary care provider. Denies allergies. Says his chest "feels irritated," otherwise denies chest pain, shortness of breath, wheezing, coughing, abdominal pain, fever, vomiting, change in urine or stool. No other modifying factors or associated signs and symptoms. PFSH Past Medical History Bipolar Disorder: Yes Anxiety: Yes Depression: Yes Diminished Hearing: No Insomnia: Yes Psychiatric: Yes Pneumonia: Yes ?: Not Past Surgical History Appendectomy: Yes Other Surgery: Yes (Lumbar discectomy) Social History Alcohol Use: Yes (1 drink per day) Tobacco Use: No Substance Use: No Allergies-Medications (Allergen,Severity, Reaction): Coded Allergies: No Known Allergies (Unverified Allergy, Unknown, 07/24/17) Reported Meds & Prescriptions Reported Meds & Active Scripts Active Depakote ER (Divalproex Sodium) 500 Mg Dirk 750 Mg PO DAILY 30 Days Reported Vraylar (Cariprazine) 3 Mg Cap 3 Mg PO DAILY Review of Systems Except as stated in HPI: all other systems reviewed are Neg Physical Exam Narrative GENERAL: Well-nourished, well-developed male patient, in no acute distress SKIN: Warm and dry. HEAD: Atraumatic. Normocephalic. EYES: Pupils equal and round. ENT: Mucosa pink and moist. NECK: Supple. Trachea midline. CARDIOVASCULAR: Regular rate and rhythm. No murmur appreciated. RESPIRATORY: No accessory muscle use. Clear to auscultation. Breath sounds equal bilaterally. GASTROINTESTINAL: Abdomen soft, non-tender, nondistended. Hepatic and splenic margins not palpable. Bowel sounds are active 4 quadrants. MUSCULOSKELETAL: No obvious deformities. No clubbing. No cyanosis. No edema. NEUROLOGICAL: Awake and alert. Oriented 3. No obvious cranial nerve deficits. Motor grossly within normal limits. Normal speech. Moves all extremities. 5/5 strength to all extremities. PSYCHIATRIC: No delusional thought processes. No hallucinations. Data Data Last Documented VS Vital Signs Date Time Temp Pulse Resp B/P (MAP) Pulse Ox O2 Delivery O2 Flow Rate FiO2 08/20/17 14:41 80 16 133/85 (101) 97 Room Air 08/20/17 13:51 98.4 Orders Orders Electrocardiogram (08/20/17 13:57) Complete Blood Count With Diff (08/20/17 13:57) Comprehensive Metabolic Panel (08/20/17 13:57) Urinalysis - C+S If Indicated (08/20/17 13:57) Psych Screen (08/20/17 13:57) Drug Screen, Random Urine (08/20/17 13:57) Alcohol (Ethanol) (08/20/17 13:57) Valproic Acid (Depakene) (08/20/17 15:21) Chest, Single Ap (08/20/17 15:21) Labs Laboratory Tests Test 08/20/17 14:10 White Blood Count 8.3 TH/MM3 Red Blood Count 5.32 MIL/MM3 Hemoglobin 15.6 GM/DL Hematocrit 45.4 % Mean Corpuscular Volume 85.5 FL Mean Corpuscular Hemoglobin 29.4 PG Mean Corpuscular Hemoglobin Concent 34.4 % Red Cell Distribution Width 13.1 % Platelet Count 223 TH/MM3 Mean Platelet Volume 8.3 FL Neutrophils (%) (Auto) 56.3 % Lymphocytes (%) (Auto) 33.8 % Monocytes (%) (Auto) 7.7 % Eosinophils (%) (Auto) 1.2 % Basophils (%) (Auto) 1.0 % Neutrophils # (Auto) 4.7 TH/MM3 Lymphocytes # (Auto) 2.8 TH/MM3 Monocytes # (Auto) 0.6 TH/MM3 Eosinophils # (Auto) 0.1 TH/MM3 Basophils # (Auto) 0.1 TH/MM3 CBC Comment DIFF FINAL Differential Comment Urine Color YELLOW Urine Turbidity CLEAR Urine pH 6.0 Urine Specific [place] 1.027 Urine Protein TRACE mg/dL Urine Glucose (UA) NEG mg/dL Urine Ketones NEG mg/dL Urine Occult Blood NEG Urine Nitrite NEG Urine Bilirubin NEG Urine Urobilinogen LESS THAN 2.0 MG/DL Urine Leukocyte Esterase NEG Urine RBC 2 /hpf Urine WBC 7 /hpf Urine Squamous Epithelial Cells 1 /hpf Urine Bacteria RARE /hpf Urine Mucus FEW /lpf Microscopic Urinalysis Comment CULT NOT INDICATED Blood Urea Nitrogen 21 MG/DL Creatinine 1.13 MG/DL Random Glucose 92 MG/DL Total Protein 7.5 GM/DL Albumin 4.0 GM/DL Calcium Level 9.5 MG/DL Alkaline Phosphatase 53 U/L Aspartate Amino Transf (AST/SGOT) 19 U/L Alanine Aminotransferase (ALT/SGPT) 27 U/L Total Bilirubin 0.3 MG/DL Sodium Level 142 MEQ/L Potassium Level 4.2 MEQ/L Chloride Level 107 MEQ/L Carbon Dioxide Level 25.0 MEQ/L Anion Gap 10 MEQ/L Estimat Glomerular Filtration Rate 70 ML/MIN Ethyl Alcohol Level LESS THAN 3 MG/DL MDM Medical Decision Making Medical Screen Exam Complete: Yes Emergency Medical Condition: Yes Medical Record Reviewed: Yes Differential Diagnosis Suicidal attempt, suicidal threat, medical clearance for psychological admission Narrative Course Patient presents voluntarily; [place] act initiated secondary to admitted suicidal attempt. Physical examination and vital signs are essentially unremarkable. Patient has no medical complaints to report. Psych screen has been ordered. If the laboratory results are unremarkable, the patient will be medically cleared for psychiatric evaluation and disposition. Diagnosis Primary Impression: Suicide attempt Additional Impression: Medical clearance for psychiatric admission Condition: Stable Emili Suarez [facility] August 20, 2017 15:25
--- NOTE | 2017-08-20 15:50 | RADRPT ---
EXAM DATE/TIME: 08/20/2017 15:26 [place] COMPARISON: No previous studies available for comparison. INDICATIONS : Chest tightness breathed gasoline fumes x 10 minutes. MEDICAL HISTORY : None. SURGICAL HISTORY : Appendectomy. ENCOUNTER: Initial ACUITY: 1 day PAIN SCORE: 0/10 LOCATION: Bilateral chest FINDINGS: A single view of the chest demonstrates the lungs to be symmetrically aerated without evidence of mas s, infiltrate or effusion. The cardiomediastinal contours are unremarkable. Osseous structures are intact. CONCLUSION: No acute cardiopulmonary process. Seb Hollis MD on August 20, 2017 at 15:47 Board Certified Radiologist. This report was verified electronically.
--- NOTE | 2017-08-20 19:12 | PD ---
History of Present Illness Chief Complaint: Suicide Ideation/Attempt Time Seen by Provider: 19:00 Travel History International Travel<30 Days: No Contact w/Intl Traveler<30days: No Known affected area: No Legal Status Legal Status: Voluntary History of Present Illness: This is a 46-year-old , male who presents voluntarily to the ED for reports of suicidal ideation. Patient is well-known to this facility and his last inpatient admission was February 07 - February 17, 2016. He reportedly made an attempt on his life today by placing a running gas powered blower in his enclosed vehicle on the seat next to him. He states that his contacted him which caused him to change his mind. Reviewed electronic medical record, labs, discuss case with staff. Patient was evaluated in his room in the main ED with his at his side. Patient reports that he has constant intermittent suicidal ideation and or morbid thoughts. He reports there is a lot of depression in his family but he is not sure if anybody has actually attempted or been successful at suicide. 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 Upon examination today he is awake, alert, and oriented 4. There is no indication of internal stimulation or thought blocking. He endorses suicidal ideation and states that he thinks of different plans constantly throughout the day. He denies homicidal ideation, auditory or visual hallucinations. He reports recent anhedonia, depression, insomnia with increased "strange dreams". Patient's when asked also confirmed that patient has a strong startle reflex. His previous diagnosis is bipolar disorder. He reports that he has been treated outpatient by Xin Barrientos and is compliant with his medication. He lives with his and works for [employer] [facility] Past Medical History Bipolar Disorder: Yes Anxiety: Yes Depression: Yes Diminished Hearing: No Insomnia: Yes Psychiatric: Yes Pneumonia: Yes ?: Not Past Surgical History Appendectomy: Yes Other Surgery: Yes (Lumbar discectomy) Psychiatric History Psychiatric History Previous admissions for mental health issues. Bipolar dx. Hx Psychiatric Treatment: Hx of bipolar d/o since 2006. [facility] admission 12/29-01/06/2016 for bipolar d/o. Hx of 2 previous sucide attempts in 1994 and 1995 History of Inpatient Treatment: Yes Social History Denies tobacco and illicit drug use, drinks socially. Hx Alcohol Use: Yes (1 drink per day) Hx Tobacco Use: No Hx Substance Use: No Hx of Substance Use Treatment: No Allergies-Medications (Allergen,Severity, Reaction): Coded Allergies: No Known Allergies (Unverified Allergy, Unknown, 07/24/17) Reported Meds & Prescriptions Reported Meds & Active Scripts Active Depakote ER (Divalproex Sodium) 500 Mg Dirk 750 Mg PO DAILY 30 Days Reported Vraylar (Cariprazine) 3 Mg Cap 3 Mg PO DAILY Mental Status Examination Appearance: Appropriate, Well dressed/well groomed Consciousness: Alert Orientation: x4 Motor Activity: Normal gait Speech: Unremarkable Language: Adequate Fund of Knowledge: Adequate Attention and Concentration: Adequate Memory: Unremarkable Mood: Sad Affect: Flat Thought Process & Associations: Intact Thought Content: Appropriate Hallucination Type: None Delusion Type: None Suicidal Ideation: Yes Suicidal Plan: Yes (Multiple) Suicidal Intention: Yes (Attempted today) Homicidal Ideation: No Homicidal Plan: No Homicidal Intention: No Insight: Fair Judgment: Impulsive [facility] Medical Decision Making Medical Record Reviewed: Yes Assessment/Plan This is a 46-year-old , male who presents voluntarily to this facility for suicidal ideation and an aborted attempt today. Upon examination patient is found sitting up on his bed awake, alert, and oriented 4. His is present at the bedside and corroborates that patient has been increasingly depressed of late. He endorses suicidal ideation and reports that he has chronic intermittent morbid thoughts and suicidal ideation. He reports several previous attempts. 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 He follows up outpatient with Xin Swift and reports being compliant with his medications. Patient carries a diagnosis of bipolar disorder. His reports that his medications seem to be managing the manic side of his order well however his depression has been increasing recently. He also reports that he has increased anhedonia, insomnia with strange dreams, relives incidences from his past career, and suffers from a sensitive startle reflex. Given the gravity of the patient's description of a suicidal attempt today and his extensive mental health history and admitting him to the 2600 unit for further evaluation and treatment as deemed necessary. I will obtain his consent for his maintenance psychotropic medications. Request HC Surrog/Guard Advoc?: No Orders Orders Electrocardiogram (08/20/17 13:57) Complete Blood Count With Diff (08/20/17 13:57) Comprehensive Metabolic Panel (08/20/17 13:57) Urinalysis - C+S If Indicated (08/20/17 13:57) Psych Screen (08/20/17 13:57) Drug Screen, Random Urine (08/20/17 13:57) Alcohol (Ethanol) (08/20/17 13:57) Valproic Acid (Depakene) (08/20/17 15:21) Chest, Single Ap (08/20/17 15:21) Diet Regular Basic (08/20/17 Dinner) Results Vital Signs Date Time Temp Pulse Resp B/P (MAP) Pulse Ox O2 Delivery O2 Flow Rate FiO2 08/20/17 14:41 80 16 133/85 (101) 97 Room Air 08/20/17 14:38 77 16 96 Room Air 08/20/17 13:51 98.4 94 19 158/87 (110) 97 Laboratory Tests Test 08/20/17 14:10 White Blood Count 8.3 Red Blood Count 5.32 Hemoglobin 15.6 Hematocrit 45.4 Mean Corpuscular Volume 85.5 Mean Corpuscular Hemoglobin 29.4 Mean Corpuscular Hemoglobin Concent 34.4 Red Cell Distribution Width 13.1 Platelet Count 223 Mean Platelet Volume 8.3 Neutrophils (%) (Auto) 56.3 Lymphocytes (%) (Auto) 33.8 Monocytes (%) (Auto) 7.7 Eosinophils (%) (Auto) 1.2 Basophils (%) (Auto) 1.0 Neutrophils # (Auto) 4.7 Lymphocytes # (Auto) 2.8 Monocytes # (Auto) 0.6 Eosinophils # (Auto) 0.1 Basophils # (Auto) 0.1 CBC Comment DIFF FINAL Differential Comment Urine Color YELLOW Urine Turbidity CLEAR Urine pH 6.0 Urine Specific [place] 1.027 Urine Protein TRACE Urine Glucose (UA) NEG Urine Ketones NEG Urine Occult Blood NEG Urine Nitrite NEG Urine Bilirubin NEG Urine Urobilinogen LESS THAN 2.0 Urine Leukocyte Esterase NEG Urine RBC 2 Urine WBC 7 Urine Squamous Epithelial Cells 1 Urine Bacteria RARE Urine Mucus FEW Microscopic Urinalysis Comment CULT NOT INDICATED Blood Urea Nitrogen 21 Creatinine 1.13 Random Glucose 92 Total Protein 7.5 Albumin 4.0 Calcium Level 9.5 Alkaline Phosphatase 53 Aspartate Amino Transf (AST/SGOT) 19 Alanine Aminotransferase (ALT/SGPT) 27 Total Bilirubin 0.3 Sodium Level 142 Potassium Level 4.2 Chloride Level 107 Carbon Dioxide Level 25.0 Anion Gap 10 Estimat Glomerular Filtration Rate 70 Valproic Acid (Depakene) Level 38 Ethyl Alcohol Level LESS THAN 3 Diagnosis Primary Impression: Bipolar II disorder, most recent episode major depressive Admitting Information Admitting Physician Requests: Admit Condition: Stable Flor Blackwell August 20, 2017 19:12
[2017-08-20] MEDS ORDERED: ALUMINUM/MAGNESIUM/SIMETH 30 ML CUP PO PRN (19:15)
[2017-08-20] MEDS ORDERED: MAGNESIUM HYDROXIDE SUSP 30 ML CUP PO PRN (19:15)
[2017-08-20] MEDS ORDERED: ACETAMINOPHEN 325 MG TAB PO PRN (19:15)
[2017-08-20 20:50] VITALS: BP 140/92; PULSE 73; RESP 16; TEMP 97.5; O2SAT 99
[2017-08-20] MEDS ORDERED: DIVALPROEX SODIUM E.R. 250 MG TAB PO SCH (23:00)
[2017-08-21 05:56] VITALS: BP 126/69; PULSE 68; RESP 18; TEMP 97.7; O2SAT 97
[2017-08-21] MEDS: CARIPRAZINE PO SCH (09:00)
[2017-08-21] MEDS ORDERED: CARIPRAZINE 3 MG PO SCH (09:00)
[2017-08-21 09:21] LABS: BLOOD UREA NITROGEN 21 MG/DL (7-18); CALCIUM 9.1 MG/DL (8.5-10.1); CHLORIDE 104 MEQ/L (98-107); CREATININE 1.04 MG/DL (0.60-1.30); GLOMERULAR FILTRATION RATE 78 ML/MIN (>89); GLUCOSE,RANDOM 84 MG/DL (74-106); SODIUM (NA) 140 MEQ/L (136-145)
[2017-08-21 09:23] LABS: CHOLESTEROL 201 MG/DL (120-200); TRIGLYCERIDES 191 MG/DL (42-150)
[2017-08-21 09:25] LABS: CHOLESTEROL/ HDL RATIO 5.69 RATIO; HDL CHOLESTEROL 35.3 MG/DL (40.0-60.0); LDL CHOLESTEROL 128 MG/DL (0-99)
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
[2017-08-21 15:47] LABS: HEMOGLOBIN A1C 5.4 % (4.3-6.0)
[2017-08-21 16:58] VITALS: BP 141/84; PULSE 78; RESP 18; TEMP 98.1; O2SAT 96
[2017-08-21] MEDS: hydrOXYzine HCL 50 MG TAB PO PRN (18:40)
[2017-08-21] MEDS: DIVALPROEX SODIUM E.R. 250 MG TAB PO SCH (20:49)
[2017-08-21] MEDS: diphenhydrAMINE HCL 50 MG CAP PO PRN (21:32)
--- NOTE | 2017-08-21 22:39 | EKG ---
Date Performed: 08/20/2017 Time Performed: 14:03:10 PTAGE: 46 years EKG: Sinus rhythm NORMAL ECG PREVIOUS TRACING : 02/07/2016 19.23 Since the previous tracing, no significant change noted DOCTOR: Kentrell Sevilla Interpretating Date/Time 08/21/2017 22:38:54
[2017-08-22 05:40] VITALS: BP 112/66; PULSE 69; RESP 18; TEMP 98.6; O2SAT 98
[2017-08-22] MEDS: CARIPRAZINE PO SCH (08:41)
[2017-08-22] MEDS: hydrOXYzine HCL 50 MG TAB PO PRN (08:43)
--- NOTE | 2017-08-22 13:10 | HHI.PYPN ---
Subjective Remarks Patient is seen in his room with nurse diana, chart reviewed patient compliant medication, patient discussed with nurse. Patient states she is feeling better today did sleep well last night feels the Atarax is helping with his anxiety. He denies suicidality at this time. Also feels the adjustment in the Depakote is helping. Though all of the above may be more a honeymoon response then medication responses quickly. We will check Depakote blood level over tomorrow morning. Patient states she has had a good conversation with his and is hoping to be discharged tomorrow Review of Systems Except as stated in HPI: all other systems reviewed are Neg Mental Status Examination Appearance: Appropriate, Well dressed/well groomed Consciousness: Alert Orientation: x4 Motor Activity: Normal gait Speech: Unremarkable Language: Adequate Fund of Knowledge: Adequate Attention and Concentration: Adequate Memory: Unremarkable Mood: Sad Affect: Other (Decreased range and intensity) Thought Process & Associations: Intact Thought Content: Appropriate Hallucination Type: None Delusion Type: None Suicidal Ideation: Yes Suicidal Plan: Yes (Multiple) Suicidal Intention: Yes (Attempted today) Homicidal Ideation: No Homicidal Plan: No Homicidal Intention: No Insight: Poor Judgment: Poor Results Vitals/IOs Vital Signs Date Time Temp Pulse Resp B/P (MAP) Pulse Ox O2 Delivery O2 Flow Rate FiO2 08/22/17 05:40 98.6 69 18 112/66 (81) 98 08/20/17 14:41 Room Air Assessment & Plan Problem List: (1) Bipolar I disorder, mild, current or most recent episode depressed, with mixed features ICD Codes: F31.31 - Bipolar disorder, current episode depressed, mild Assessment & Plan Estimated LOS: days patient's mood is improving somewhat he is calmer now denies suicidality voices or visions. Slept well. His complaint medications. We will check Depakote level over in a.m. Possible discharge tomorrow Justification for Cont. Inpt. At this time patient would decompensate replace the lower level of care Discharge Planning Return home Request HC Surrog/Guard Advoc?: No Roly Jara MD August 22, 2017 13:10
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
[2017-08-22 17:55] VITALS: BP 127/82; PULSE 75; RESP 18; TEMP 98.3; O2SAT 98
[2017-08-22] MEDS: DIVALPROEX SODIUM E.R. 250 MG TAB PO SCH (21:55)
[2017-08-22] MEDS: diphenhydrAMINE HCL 50 MG CAP PO PRN (21:55)
[2017-08-23 05:43] VITALS: BP 127/65; PULSE 64; RESP 17; TEMP 98.3; O2SAT 96
[2017-08-23 06:15] VITALS: BP 127/65; PULSE 64; RESP 17; TEMP 98.3; O2SAT 96
[2017-08-23] MEDS: CARIPRAZINE PO SCH (09:00)
[2017-08-23] MEDS: hydrOXYzine HCL 50 MG TAB PO PRN (11:09)
[2017-08-23] MEDS ORDERED: CARI1CAP2 PO (12:50)
[2017-08-23] MEDS ORDERED: HYDR50TA94 PO (12:50)
[2017-08-23] MEDS ORDERED: DEPA500T3 PO (12:50)
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
== END 2017-08-23 20:00 | disposition home or self-care (01) | DRG 885 ==
LOC: NEPD 13:47 → NEDA 19:15 → H260 21:00
PROVIDERS: ADMIT Psychiatry & Neurology Psychiatry; ATTEND Psychiatry & Neurology Psychiatry
DX: F31.31 Bipolar disorder, current episode depressed, mild (principal); F10.129 Alcohol abuse with intoxication, unspecified; G47.00 Insomnia, unspecified; T58.02XA Toxic effect of carbon monoxide from motor vehicle exhaust, intentional self-harm, initial encounter; Y90.2 Blood alcohol level of 40-59 mg/100 ml
CPT/HCPCS: 71045; 80048; 80053; 80061; 80164; 80307; 81001; 83036; 85025; 93005; Q0163